=== PATIENT | female | born 2000 | race Caucasian/White ===

== ENCOUNTER 2019-11-22 21:12 | Emergency (ER) | payer BC, OTHER ==
[2019-11-22 22:56] LABS: APPEARANCE,URINE SLIGHTLY-CLOUDY; BILIRUBIN,URINE NEGATIVE (NEGATIVE); COLOR,URINE YELLOW; GLUCOSE, URINE NEGATIVE (NEGATIVE); KETONES,URINE NEGATIVE (NEGATIVE); PROTEIN,URINE 100 mg/dL (NEGATIVE); URINE SPECIFIC GRAVITY 1.023
--- NOTE | 2019-11-22 23:20 | ER Document Report ---
ED GI/ - General Chief Complaint: Flank Pain Stated Complaint: RIGHT FLANK PAIN, LOW ABDOMINAL PAIN Time Seen by Provider: 11/22/19 23:11 Notes: CHIEF COMPLAINT: Right pelvic pain for 2 days HPI: 19-year-old female presenting for right pelvic pain for the last 2 days. Intermittent sharp stabbing sensation in the right pelvis. No definitive history of kidney stones or ovarian cyst. Started her menstrual cycle yesterday. Pain got worse tonight, accompanied by slight nausea. No specific dysuria no fever no chills. Patient states that she has had this pain in the past and was trying to set up with her [facility] in [place] but was unable to get them prior to moving to this area ROS: See HPI - all other systems were reviewed and are otherwise negative Constitutional: no fever or recent illness Eyes: no drainage, no blurred vision ENT: no runny nose, no sore throat Cardiovascular: no chest pain Resp: no SOB, no cough GI: no vomiting, no diarrhea : no dysuria, no vaginal discharge, positive pelvic pain Integumentary: no rash Allergy: no hives Musculoskeletal: no extremity pain or swelling Neurological: no numbness/tingling, no weakness MEDICATIONS: I agree with the patient medications as charted by the RN. ALLERGIES: I agree with the allergies as charted by the RN. PAST MEDICAL HISTORY/PAST SURGICAL HISTORY: Reviewed and agree as charted by RN. SOCIAL HISTORY: Reviewed and agree as charted by RN. FAMILY HISTORY: No significant familial comorbid conditions directly related to patient complaint EXAM: Reviewed vital signs as charted by RN. CONSTITUTIONAL: Alert and oriented and responds appropriately to questions. Well-appearing; well-nourished HEAD: Normocephalic; atraumatic EYES: PERRL; Conjunctivae clear, sclerae non-icteric ENT: normal nose; no rhinorrhea; moist mucous membranes; pharynx without lesions noted NECK: Supple without meningismus; non-tender; no cervical lymphadenopathy, no masses CARD: RRR; no murmurs, no clicks, no rubs, no gallops; symmetric distal pulses RESP: Normal chest excursion without splinting or tachypnea; breath sounds clear and equal bilaterally; no wheezes, no rhonchi, no rales ABD/GI: Normal bowel sounds; non-distended; soft, mild tenderness over the suprapubic and right pelvis on palpation, no rebound, no guarding; no palpable organomegaly or masses : 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 External genitalia normal. No skin lesions noted. Pelvic Exam: Small amount of dark red blood in the vaginal vault no clots. No purulent discharge. Cervix appears normal. No CMT. No lesions or masses. Uterus normal size and non tender. Right/Left adnexa normal size and moderately tender in the right adnexa. BACK: The back appears normal and is non-tender to palpation, there is no CVA tenderness EXT: Normal ROM in all joints; non-tender to palpation; no cyanosis, no effu sions, no edema SKIN: Normal color for age and race; warm; dry; good turgor; no acute lesions noted NEURO: Moves all extremities equally; Motor and sensory function intact PSYCH: The patient's mood and manner are appropriate. Grooming and personal hygiene are appropriate. MDM: 19-year-old female right pelvic pain. Started her menstrual cycle yesterday. No flank or back pain to suggest renal colic at this time. Pain seems fairly low down in the pelvis suspect ovarian cyst. Will perform pelvic exam and obtain ultrasound to evaluate for torsion or cyst - Related Data Home Medications: Synthroid, Keppra, Past Medical History - Social History Smoking Status: Never Smoker Chew tobacco use (# tins/day): No Frequency of alcohol use: None Drug Abuse: None Family History: Reviewed & Not Pertinent Patient has homicidal ideation: No Neurological Medical History: Reports: Hx Seizures Physical Exam - Vital signs Vitals: Temp Pulse Resp BP Pulse Ox 97.8 F 105 H 13 142/93 H 100 11/22/19 21:17 11/22/19 21:17 11/22/19 21:17 11/22/19 21:17 11/22/19 21:17 Course - Re-evaluation Re-evalutation: 11/23/19 00:42 Patient ultrasound does not show evidence of right ovarian torsion or cyst to explain patient's pain on the right side. Differential still includes kidney stone and appendicitis. Will obtain screening labs and plan for CT. 11/23/19 01:59 CT imaging does not show acute emergent abnormalities. I will treat the patient for UTI, refer her to [facility] for follow-up. Discussed with the patient at length who is in agreement with this plan - Vital Signs Vital signs: Temp Pulse Resp BP Pulse Ox 97.8 F 105 H 18 115/77 99 11/22/19 21:44 11/22/19 21:17 11/23/19 01:17 11/23/19 00:01 11/23/19 00:01 - Laboratory Result Diagrams: 11/22/19 21:50 11/22/19 21:50 Laboratory results interpreted by me: 11/22/19 11/22/19 21:50 22:13 Sodium 136.7 L Glucose 119 H Urine Protein 100 H Urine Blood LARGE H Urine Urobilinogen 2.0 H Leukocyte Esterase Rfl TRACE H Discharge - Discharge Clinical Impression: RLQ abdominal pain UTI (urinary tract infection) Qualifiers: Urinary tract infection type: acute cystitis Hematuria presence: with hematuria Qualified Code(s): N30.01 - Acute cystitis with hematuria Condition: Stable Disposition: HOME, SELF-CARE Additional Instructions: Take the Voltaren for pain. Take the Keflex to treat the urinary infection. Follow-up with [facility] for further evaluation and treatment call for appointment. Your imaging studies today did not show evidence of a kidney stone, appendicitis or an ovarian cyst. If you have worsening pain or develop fever greater than 101 return for reevaluation of symptoms Prescriptions: Cephalexin Monohydrate [Keflex 500 mg Capsule] 500 mg PO Q6H 7 Days #28 capsule Diclofenac Sodium [Voltaren 50 Mg Tablet.] 50 mg PO BID #20 tablet. Referrals: SINCERE CHAMBERS MD [ACTIVE PROVISIONAL STAFF] - Follow up as needed
[2019-11-23 00:03] LABS: RBCS (WET MOUNT) 4+ RBCS SEEN; T.VAGINALIS (WET MOUNT) NO TRICHOMONAS SEEN; WBCS (WET MOUNT) FEW WBCS SEEN; YEAST (WET MOUNT) NO YEAST SEEN
--- NOTE | 2019-11-23 00:36 | RADIOLOGY REPORT (SQ) ---
EXAM DESCRIPTION: US PELVIS TRANSVAGINAL COMPLETED DATE/TME: 11/22/2019 23:18 CLINICAL HISTORY: 19 years, Female, right pelvic pain COMPARISON: None. TECHNIQUE: Emergent pelvic ultrasound LIMITATIONS: None. FINDINGS: The uterus measures 7.0 x 3.9 x 4.4 cm. The myometrium is homogenous. The endometrium measures 11 mm in thickness. The left ovary is not well seen likely due to its position in the pelvis. The right ovary measures 3.1 x 2.5 x 2.8 cm. Normal flow to the right ovary. No adnexal cyst or mass. No free fluid IMPRESSION: Nonvisualization of the left ovary as above. Remainder unremarkable copyright 2010 [employer]- All Rights Reserved
[2019-11-23 00:54] LABS: ABSOLUTE BASOPHILS # (AUTO) 0.1 10^3/uL (0.0-0.2); ABSOLUTE EOSINOPHILS # (AUTO) 0.2 10^3/uL (0.0-0.6); ABSOLUTE LYMPHOCYTES (AUTO) 3.5 10^3/uL (0.5-4.7); ABSOLUTE MONOCYTES (AUTO) 0.7 10^3/uL (0.1-1.4); ABSOLUTE NEUT (AUTO) 5.5 10^3/uL (1.7-8.2); BASOPHILS % (AUTO) 0.9 % (0-2); EOSINOPHILS % (AUTO) 1.8 % (0-6); HEMATOCRIT 41.5 % (36.0-47.0); HEMOGLOBIN 14.7 g/dL (12.0-15.5); LYMPHOCYTES % (AUTO) 35.3 % (13-45); MEAN CORPUSCULAR HEMOGLOBIN 30.5 pg (27.0-33.4); MEAN CORPUSCULAR HGB CONC 35.4 g/dL (32.0-36.0); MEAN CORPUSCULAR VOLUME 86 fl (80-97); MONOCYTES % (AUTO) 6.9 % (3-13); PLATELET COUNT 243 10^3/uL (150-450); RED CELL DISTRIBUTION WIDTH 13.3 % (11.5-14.0); SEGMENTED NEUTROPHILS % (AUTO) 55.1 % (42-78); TOTAL CELLS COUNTED % (AUTO) 100 %; WHITE BLOOD COUNT 9.9 10^3/uL (4.0-10.5)
[2019-11-23 00:59] LABS: ALBUMIN 4.3 g/dL (3.5-5.0); ALKALINE PHOSPHATASE 90 U/L (38-126); ANION GAP 11 (5-19); ASPARTATE AMINO TRANSFERASE 17 U/L (14-36); BILIRUBIN,TOTAL 0.6 mg/dL (0.2-1.3); BLOOD UREA NITROGEN 15 mg/dL (7-20); CALCIUM 9.4 mg/dL (8.4-10.2); CARBON DIOXIDE 22 mmol/L (22-30); CHLORIDE 104 mmol/L (98-107); GLUCOSE 119 mg/dL (75-110); POTASSIUM 3.8 mmol/L (3.6-5.0); TOTAL PROTEIN 7.6 g/dL (6.3-8.2)
[2019-11-23 01:28] LABS: CHLAM PCR NOT DETECTED (NOT DETECT)
--- NOTE | 2019-11-23 01:57 | RADIOLOGY REPORT (SQ) ---
CT ABDOMEN AND PELVIS WITH INTRAVENOUS CONTRAST: 11/23/2019 12:51 AM CDT HISTORY: 19-year old with right lower quadrant abdominal pain. COMPARISON: None available TECHNIQUE: Axial contiguous images were obtained from the lung bases to the proximal femurs with intravenous intravenous contrast administered. Sagittal and coronal reconstructions were also obtained and reviewed. This exam was performed according to our departmental dose-optimization program, which includes automated exposure control, adjustment of the mA and/or KV according to the patient's size and/or use of iterative reconstruction technique. FINDINGS: No focal consolidative airspace opacities are seen. No discrete pleural effusion is seen. The visualized hepatic parenchyma is unremarkable. No focal enhancing lesion is seen. The gallbladder demonstrates no evidence of calcified gallstones The spleen, pancreas, and adrenals are normal in size and contour. The kidneys demonstrate no evidence of hydronephrosis. Bladder is minimally distended, but grossly appears unremarkable. The uterus is present. The stomach is not well distended. The small bowel loops appear unremarkable. No pericolonic inflammatory stranding is seen. The appendix appears unremarkable. There is no evidence of pneumoperitoneum or free fluid. The aorta and IVC appear normal in size. No significantly enlarged lymph nodes are seen in the abdomen or pelvis. Review of the bone show no evidence of any suspicious lytic or blastic lesions. IMPRESSION: No acute process is seen within the abdomen or pelvis.
[2019-11-23] MEDS ORDERED: CEPHALEXIN 500 MG CAPSULE PO ONE (01:59)
[2019-11-23] MEDS ORDERED: KETOROLAC TROMETHAMINE INJ/PF 30 MG/1 ML SDV IV ONE (01:59)
[2019-11-23 02:20] VITALS: BP 110/82
== END 2019-11-23 02:36 | disposition home or self-care (01) ==
LOC: ER 21:12
DX: N30.01 Acute cystitis with hematuria (principal); R10.31 Right lower quadrant pain; R10.2 Pelvic and perineal pain; R11.0 Nausea; R56.9 Unspecified convulsions; Z79.899 Other long term (current) drug therapy
CPT/HCPCS: 99284; 96374; 36415; 87086; 87210; 83690; 85025; 81025; 80053; 81001; 87491; 87591; 76830; 93976; 74177; J1885

== ENCOUNTER 2020-03-22 16:35 | Emergency (ER) | payer BC, OTHER ==
--- NOTE | 2020-03-22 17:59 | ER Document Report ---
ED Medical Screen (RME) - General Stated Complaint: PELVIC PAIN Time Seen by Provider: 03/22/20 17:41 - HPI Notes: 03/22/20 17:54 19-year-old female who is 9 weeks resents emergency room for pelvic pain, cramping and lower back pain that is become progressively worse throughout the day, pain is 3 out of 5. Denies any vaginal bleeding. Patient states she has a history of ovarian cyst and UTIs. Patient also is concerned about her thyroid, states that she has hypothyroidism and since her her thyroid has not been checked. reports she hasn't had her thyroid checked in over a year, does not have a primary care doctor. Denies any chest pain shortness of breath. Reports some nausea related to her , denies any vomiting, abdominal pain. Patient tried to get into her [facility] today but they were booked. I have greeted and performed a rapid initial assessment of this patient. A comprehensive ED assessment and evaluation of the patient, analysis of test results and completion of the medical decision making process will be conducted by additional ED providers. PHYSICAL EXAMINATION: GENERAL: Well-appearing, well-nourished and in no acute distress CV: s1, s2 regular LUNGS: No respiratory distress abd: suprapubic tenderness, +CVA tenderness bilaterally Musculoskeletal: Normal range of motion NEUROLOGICAL: Normal speech, normal gait. SKIN: Warm, Dry, normal turgor, no rashes or lesions noted. - Related Data Allergies/Adverse Reactions: No Known Allergies Allergy (Verified 03/22/20 17:57) Past Medical History Neurological Medical History: Reports: Hx Seizures Physical Exam - Vital signs Vitals: Temp Pulse Resp BP Pulse Ox 98.1 F 98 18 120/73 100 03/22/20 16:43 03/22/20 16:43 03/22/20 16:43 03/22/20 16:43 03/22/20 16:43 Course - Vital Signs Vital signs: Temp Pulse Resp BP Pulse Ox 98.1 F 98 18 120/73 100 03/22/20 16:43 03/22/20 16:43 03/22/20 16:43 03/22/20 16:43 03/22/20 16:43
[2020-03-22 18:37] LABS: ABSOLUTE BASOPHILS # (AUTO) 0.1 10^3/uL (0.0-0.2); ABSOLUTE EOSINOPHILS # (AUTO) 0.1 10^3/uL (0.0-0.6); ABSOLUTE LYMPHOCYTES (AUTO) 2.9 10^3/uL (0.5-4.7); ABSOLUTE MONOCYTES (AUTO) 0.8 10^3/uL (0.1-1.4); ABSOLUTE NEUT (AUTO) 10.3 10^3/uL (1.7-8.2); BASOPHILS % (AUTO) 0.4 % (0-2); EOSINOPHILS % (AUTO) 0.9 % (0-6); HEMATOCRIT 37.6 % (36.0-47.0); HEMOGLOBIN 13.1 g/dL (12.0-15.5); LYMPHOCYTES % (AUTO) 20.4 % (13-45); MEAN CORPUSCULAR HEMOGLOBIN 30.4 pg (27.0-33.4); MEAN CORPUSCULAR HGB CONC 34.9 g/dL (32.0-36.0); MEAN CORPUSCULAR VOLUME 87 fl (80-97); MONOCYTES % (AUTO) 5.3 % (3-13); PLATELET COUNT 203 10^3/uL (150-450); RED BLOOD COUNT 4.32 10^6/uL (3.72-5.28); TOTAL CELLS COUNTED % (AUTO) 100 %; WHITE BLOOD COUNT 14.1 10^3/uL (4.0-10.5)
[2020-03-22 18:41] LABS: APPEARANCE,URINE CLOUDY; BILIRUBIN,URINE NEGATIVE (NEGATIVE); CALCIUM OXALATE CRYSTALS,URINE TOO NUMEROUS TO CNT /HPF; COLOR,URINE YELLOW; GLUCOSE, URINE NEGATIVE (NEGATIVE); KETONES,URINE NEGATIVE (NEGATIVE); LEUKOCYTE ESTERASE,URINE SMALL (NEGATIVE); NITRITE,URINE NEGATIVE (NEGATIVE); PROTEIN,URINE 30 mg/dL (NEGATIVE); URINE SPECIFIC GRAVITY 1.031; UROBILINOGEN,URINE NEGATIVE mg/dL (<2.0)
[2020-03-22 18:51] LABS: ANION GAP 10 (5-19); BLOOD UREA NITROGEN 11 mg/dL (7-20); CALCIUM 9.6 mg/dL (8.4-10.2); CARBON DIOXIDE 24 mmol/L (22-30); CHLORIDE 100 mmol/L (98-107); GLUCOSE 80 mg/dL (75-110); POTASSIUM 4.3 mmol/L (3.6-5.0)
--- NOTE | 2020-03-22 19:27 | RADIOLOGY REPORT (SQ) ---
EXAM DESCRIPTION: U/S RETROPERITON (RENAL/AORTA) IMAGES COMPLETED DATE/TIME: 03/22/2020 6:56 pm REASON FOR STUDY: bilateral flank pain COMPARISON: None. TECHNIQUE: Dynamic and static grayscale images acquired of the kidneys and bladder and recorded on P ACS. Additional selected color Doppler and spectral images recorded. LIMITATIONS: None. FINDINGS: RIGHT KIDNEY: Normal size. Normal echogenicity. No solid or suspicious masses. No hydronep hrosis. No calcifications. LEFT KIDNEY: Normal size. Normal echogenicity. No solid or suspicious masses. No hydronephrosis. No calcifications. BLADDER: No masses. OTHER FINDINGS: No other significant finding. IMPRESSION: NORMAL RENAL AND BLADDER ULTRASOUND. TECHNICAL DOCUMENTATION: JOB ID: [id number] 2010 [employer]- All Rights Reserved Reading location - IP/workstation name: [email or web address]
--- NOTE | 2020-03-22 19:30 | RADIOLOGY REPORT (SQ) ---
EXAM DESCRIPTION: U/S [id number] TRNABD 1GES W/ODOP IMAGES COMPLETED DATE/TIME: 03/22/2020 6:56 pm REASON FOR STUDY: pelvic pain, cramping, no vaginal bleeding, 9 week COMPARISON: None. TECHNIQUE: Transabdominal static and realtime grayscale images acquired of the pelvis. Additional se lected spectral and color Doppler images recorded. All images stored on PACs. bHCG: Not available. CLINICAL DATES: 9 weeks, 0 days LIMITATIONS: None. FINDINGS: FETUS: Single Living intrauterine . ULTRASOUND EGA: 9 weeks, 3 day ULTRASOUND HAYLEE: 10/22/2020 EFW: Not applicable less than 20 weeks. CRL: 2.6 cm FHR: 168 beats per minute. SURVEY: Too early to assess. AMNIOTIC FLUID: Adequate amount. PLACENTA: Not yet developed due to early gestation. SUBCHORIONIC BLEED: No. SIZE OF BLEED: Not applicable. UTERUS: No masses. No anomalies. CERVICAL LENGTH: 2.3 cm Closed. RIGHT ADNEXA: Normal ovary with normal vascular flow. No adnexal free fluid. No adnexal masses. LEFT ADNEXA: Normal ovary with normal vascular flow. No adnexal free fluid. No adnexal masses. Incidental note is made of a 3.7 cm dominant follicle. FREE FLUID: None. OTHER: No other significant finding. IMPRESSION: LIVING INTRAUTERINE . EGA 9 weeks, 3 days Trimester of : First trimester - 0 to 13 weeks. TECHNICAL DOCUMENTATION: JOB ID: [id number] 2010 [employer]- All Rights Reserved rev Reading location - IP/workstation name: [email or web address]
--- NOTE | 2020-03-22 21:55 | ER Document Report ---
ED General - General Chief Complaint: OB Problem (<20wks) Stated Complaint: PELVIC PAIN Time Seen by Provider: 03/22/20 17:41 - HPI Notes: 19-year-old female presents with lower pelvic cramping. Patient is at 9 weeks gestation. She states that she was at work today and she had some bilateral lower pelvic cramping, she has had this pain before but seem to be more intense than usual. It was worse when walking around. She also states she has had some lower back pain, she had this early on her , but now seems to be returning. The pain radiates to her hips. She denies any vaginal bleeding or vaginal discharge. She also reported frequent urination starting today. She reports a history of hypothyroidism, she is on 112 mcg of levothyroxine, states that she has not had her levels checked during this pregna ncy. - Related Data Allergies/Adverse Reactions: No Known Allergies Allergy (Verified 03/22/20 17:57) Past Medical History - General Information source: Patient - Social History Smoking Status: Never Smoker Chew tobacco use (# tins/day): No Frequency of alcohol use: None Drug Abuse: None Family History: Reviewed & Not Pertinent Patient has homicidal ideation: No Neurological Medical History: Reports: Hx Seizures Review of Systems - Review of Systems Constitutional: No symptoms reported EENT: No symptoms reported Cardiovascular: No symptoms reported Respiratory: No symptoms reported Gastrointestinal: denies: Abdominal pain Genitourinary: Frequency. denies: Dysuria, Flank pain Female Genitourinary: . denies: Vaginal discharge, Vaginal bleeding Musculoskeletal: Back pain Skin: No symptoms reported Neurological/Psychological: No symptoms reported Physical Exam - Vital signs Vitals: Temp Pulse Resp BP Pulse Ox 98.1 F 98 18 120/73 100 03/22/20 16:43 03/22/20 16:43 03/22/20 16:43 03/22/20 16:43 03/22/20 16:43 - General General appearance: Appears well, Alert In distress: None - HEENT Head: Normocephalic, Atraumatic Extraocular movements intact: Yes Pupils: PERRL - Respiratory Breath sounds: Normal - Cardiovascular Rhythm: Regular Heart sounds: Normal auscultation - Abdominal Tenderness: Nontender - Back Back: Tender - Bilateral SI joints. No: CVA tenderness, Vertebra tenderness - Extremities General upper extremity: Normal ROM General lower extremity: Normal ROM - Neurological Neuro grossly intact: Yes Cognition: Normal Orientation: AAOx4 - Psychological Associated symptoms: Normal affect - Skin Skin Temperature: Warm Course - Re-evaluation Re-evalutation: 19-year-old female at 9 weeks gestation here with lower back/pelvic pain along with some urinary frequency today. On exam she is well-appearing. She has no tenderness to her abdomen or pelvis. She does have some tenderness to her bilateral SI joints, mild and tolerated exam well. No vaginal bleeding. To the triage process she had an ultrasound done which showed a single live IUP and a closed cervix. Her urine did have some bacteria, given that she is we will treat this with amoxicillin. TSH high, however T4 within normal limits. Patient advised to have close follow-up with [facility]. Suspect musculoskeletal ligamentous origin of her pain. Return precautions given, patient stable at time of discharge. - Vital Signs Vital signs: Temp Pulse Resp BP Pulse Ox 98.0 F 88 16 106/64 100 03/22/20 23:24 03/22/20 23:24 03/22/20 23:24 03/22/20 23:24 03/22/20 23:24 - Laboratory Result Diagrams: 03/22/20 18:00 03/22/20 18:00 Laboratory results interpreted by me: 03/22/20 03/22/20 03/22/20 18:00 18:00 18:00 WBC 14.1 H Absolute Neuts (auto) 10.3 H Sodium 134.3 L TSH 11.40 H Beta HCG, Quant 835838.00 H Urine Protein Ur Leukocyte Esterase 03/22/20 18:00 WBC Absolute Neuts (auto) Sodium TSH Beta HCG, Quant Urine Protein 30 H Ur Leukocyte Esterase SMALL H - Diagnostic Test Radiology reviewed: Image reviewed, Reports reviewed Discharge - Discharge Clinical Impression: First trimester , Bacteriuria Disposition: HOME, SELF-CARE Additional Instructions: You may use Tylenol for pain. Please follow-up with your [facility] as planned. Given that you had some bacteria in your urine, you have been prescribed a course of amoxicillin. You will be called if the urine culture is positive and antibiotics need to be changed. Return to the emergency department for any concerning worsening symptoms. Prescriptions: Amoxicillin 1 tab PO BID 7 Days #14 tab
[2020-03-22 23:34] VITALS: BP 106/64
== END 2020-03-22 23:24 | disposition home or self-care (01) ==
LOC: ER 16:35
DX: O26.891 Other specified pregnancy related conditions, first trimester (principal); R82.71 Bacteriuria; R10.2 Pelvic and perineal pain; R35.0 Frequency of micturition; O99.89 Other specified diseases and conditions complicating pregnancy, childbirth and the puerperium; M54.5 Low back pain; O99.281 Endocrine, nutritional and metabolic diseases complicating pregnancy, first trimester; E03.9 Hypothyroidism, unspecified; Z79.899 Other long term (current) drug therapy; Z3A.09 9 weeks gestation of pregnancy; Z87.440 Personal history of urinary (tract) infections; Z87.42 Personal history of other diseases of the female genital tract
CPT/HCPCS: 36415; 76770; 76801; 80048; 81001; 84439; 84443; 84702; 85025; 87086; 87088; 99285